=== PATIENT | male | born 1985 | race Caucasian/White ===

== ENCOUNTER 2018-01-26 23:30 | Emergency (ER) | payer OTHER ==
[~2018-01-26] VITALS: Ht 175.3 cm; Wt 104.3 kg
[~2018-01-26 23:30] MED LIST: MULT-1468
[2018-01-26 23:33] VITALS: BP 153/90
--- NOTE | 2018-01-26 23:39 | NUR ---
to lobby, a/w bed, amb ,stable, ermd noted
--- NOTE | 2018-01-27 00:51 | NUR ---
PATIENT AMBULATED TO ER CHAIR E
--- NOTE | 2018-01-27 00:52 | NUR ---
PATIENT PRESENTS TO ED WITH LEFT SIDED TOOTH PAIN X2 MONTHS RADIATING TO LEFT SIDE OF FACE, JAW. PT DENIES N/V/D; SKIN IS PINK/WARM/DRY; AAOX4 WITH EVEN AND STEADY GAIT; LUNGS CLEAR BL; HR EVEN AND REGULAR; PT DENIES ANY FEVER, CP, SOB, OR COUGH AT THIS TIME; PATIENT STATES PAIN OF 9/10 AT THIS TIME; VSS; PATIENT POSITIONED FOR COMFORT; SITTING UPRIGHT IN CHAIR. ER MD MADE AWARE OF PT STATUS.
[2018-01-27] MEDS ORDERED: AMOXIL/CLAVULANATE 875/125 MG 1 TAB PO ONE (01:15)
[2018-01-27] MEDS ORDERED: oxyCODONE/APAP 5/325 MG 1 TAB TAB PO ONE (01:15)
[2018-01-27] MEDS ORDERED: AMOXIL/CLAVULANATE 875/125 MG 1 TAB ONE (01:22)
[2018-01-27 01:41] VITALS: BP 153/90
--- NOTE | 2018-01-27 01:41 | NUR ---
Patient discharged with v/s stable. Written and verbal after care instructions given and explained. Patient alert, oriented and verbalized understanding of instructions. Ambulatory with steady gait. All questions addressed prior to discharge. ID band removed. Patient advised to follow up with PMD. Rx of PERCOCET, AUGMENTIN given. Patient educated on indication of medication including possible reaction and side effects. Opportunity to ask questions provided and answered.
== END 2018-01-27 01:41 | disposition home or self-care (01) ==
LOC: MED 23:30
DX: K04.7 Periapical abscess without sinus (principal); F17.210 Nicotine dependence, cigarettes, uncomplicated; Z79.899 Other long term (current) drug therapy
CPT/HCPCS: 99283

== ENCOUNTER 2018-02-08 14:56 | Emergency (ER) | payer OTHER ==
[~2018-02-08] VITALS: Ht 175.3 cm; Wt 108.6 kg
[2018-02-08 15:09] VITALS: BP 130/71
[2018-02-08 15:42] VITALS: BP 130/71
[2018-02-10 06:18] LABS: CHLAMYDIA TRACHOMATIS AMP DNA Negative (Negative)
== END 2018-02-08 15:44 | disposition home or self-care (01) ==
LOC: MED 14:56
DX: B35.6 Tinea cruris (principal)
CPT/HCPCS: 36415; 81002; 87491; 99283